=== PATIENT | male | born 1980 | race Caucasian/White ===

== ENCOUNTER 2017-02-16 21:54 | Emergency (ER) | payer OTHER, MEDICAID ==
[~2017-02-16] VITALS: Ht 177.8 cm; Wt 83.9 kg
[~2017-02-16 21:54] MED LIST: AMBIEN5 MG ORAL; ATARAX25 MG ORAL; AUGMENTIN 500-1 EACH ORAL; AUGMENTIN 875-1 EAC1 ORAL; BACITRACIN1 APPLIC TOPIC; BACTRIM DS TAB1 EAC1 ORAL; IBUPROFEN600 MG ORAL; METHADONE HCL10 MG PO; NORCO 10-325 T1 EACH ORAL; PENICILLIN V P500 MG PO; VICODIN ES 7.51 EACH PO; XANAX2 MG ORAL; methadone
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
[2017-02-16] MEDS ORDERED: ALPRAZolam 0.5mg tab ORAL ONE (22:45)
[2017-02-16] MEDS ORDERED: KLONOPIN1 MG ORAL (22:46)
[2017-02-16 22:58] VITALS: BP 115/71
[2017-02-16 22:59] VITALS: BP 115/71
== END 2017-02-16 23:01 | disposition home or self-care (01) ==
LOC: EMR 22:20
DX: F13.239 Sedative, hypnotic or anxiolytic dependence with withdrawal, unspecified (principal); F41.9 Anxiety disorder, unspecified
CPT/HCPCS: 99283

== ENCOUNTER 2017-05-05 07:18 | Emergency (ER) | payer OTHER, MEDICAID ==
[~2017-05-05] VITALS: Ht 177.8 cm; Wt 81.6 kg
[~2017-05-05 07:18] MED LIST changes: +KLONOPIN1 MG ORAL
[2017-05-05 07:29] VITALS: BP 166/100
[2017-05-05] MEDS ORDERED: Morphine Sulfate 4mg/ml Inj IVP ONE (07:45)
[2017-05-05] MEDS ORDERED: Ketorolac 30mg Inj IV ONE (07:45)
--- NOTE | 2017-05-05 08:05 | Emergency Room Report ---
History of Present Illness General Chief Complaint: Male Urogenital Problems Source: Patient Present Illness HPI 37-year-old M presents ED for evaluation. States that he's been having back pain radiating to his groin for the last several weeks. Pain is 10/10 throbbing, radiating from his right flank to his groin. Notes dysuria. Patient believes he may have a kidney stone. Denies any prior history of kidney stones but states there is a family history. Denies any fevers or chills. Denies nausea vomiting. Patient appears very anxious. There is a documented history of anxiety. No other aggravating relieving factors. Denies any other associated symptoms Allergies: Coded Allergies: No Known Allergies (Unverified , 08/25/12) Patient History Past Medical History: psych hx Past Surgical History: none Pertinent Family History: none Social History: Denies: alcohol use, drug use, smoking Immunizations: UTD Reviewed Nursing Documentation: PMH: Agreed, PSxH: Agreed Nursing Documentation-PMH Past Medical History: No Stated History Hx Neurological Problems: Yes - panic attack, substance Review of Systems All Other Systems: negative except mentioned in HPI Physical Exam Vital Signs Date Time Temp Pulse Resp B/P Pulse Ox O2 Delivery O2 Flow Rate FiO2 05/05/17 07:20 97.9 76 16 166/100 100 Room Air Sp02 EP Interpretation: reviewed, normal General Appearance: alert, GCS 15, non-toxic, mild distress Head: normocephalic Eyes: bilateral eye PERRL, bilateral eye normal inspection ENT: normal ENT inspection Neck: normal inspection Respiratory: normal inspection Cardiovascular #1: normal inspection Gastrointestinal: normal bowel sounds, non tender, soft, non-distended, no guarding, no rebound Rectal: deferred Genitourinary: scrotum normal, CVA tenderness (R) Musculoskeletal: back normal Neurologic: alert, oriented x3, responsive, motor strength/tone normal, sensory intact, speech normal Psychiatric: anxious Skin: normal inspection Lymphatic: normal inspection Medical Decision Making Diagnostic Impression: Primary Impression: Kidney stone ER Course Hospital Course 37-year-old M presents to ED with R flank pain Differential diagnosis includes-appendicitis, cholecystitis, kidney stone, pyelonephritis Clinical course Patient placed on stretcher. After initial history and physical I ordered labs , IV fluids, pain medications and CT scan Labs - no leukocytosis, electrolytes ok, LFTs normal, UA - hematuria, no UTI CT scan shows R hydronephrosis/hydroureter. No obstructing stone identified. Likely recently passed Upon reassessment, patient states pain has improved. Given improvement in symptoms, I believe patient can be safely discharged to home. Patient agrees with plan given referrals to PMD, Urology I feel this is a highly complex case requiring extensive working including EKG/ Rhythm strip, Xray/CT/US, Blood/urine lab work, repeat exams while in ED, and administration of strong opiates/narcotics for pain control, admission to hospital or close patient follow up. Diagnosis - kidney stone Stable and discharged to home with Rx Motrin, flomax. Followup with PMD/ urology. Return to ED if symptoms recur or worsen Labs Test 05/05/17 07:45 White Blood Count 7.5 K/UL (4.8-10.8) Red Blood Count 4.48 M/UL (4.70-6.10) Hemoglobin 13.3 G/DL (14.2-18.0) Hematocrit 40.6 % (42.0-52.0) Mean Corpuscular Volume 91 FL (80-99) Mean Corpuscular Hemoglobin 29.7 PG (27.0-31.0) Mean Corpuscular Hemoglobin Concent 32.7 G/DL (32.0-36.0) Red Cell Distribution Width 11.6 % (11.6-14.8) Platelet Count 195 K/UL (150-450) Mean Platelet Volume 7.9 FL (6.5-10.1) Neutrophils (%) (Auto) 70.6 % (45.0-75.0) Lymphocytes (%) (Auto) 23.1 % (20.0-45.0) Monocytes (%) (Auto) 4.6 % (1.0-10.0) Eosinophils (%) (Auto) 0.8 % (0.0-3.0) Basophils (%) (Auto) 0.8 % (0.0-2.0) Urine Color Yellow Urine Appearance Slightly cloudy Urine pH 6.5 (4.5-8.0) Urine Specific [place] 1.020 (1.005-1.035) Urine Protein 2+ (NEGATIVE) Urine Glucose (UA) Negative (NEGATIVE) Urine Ketones 2+ (NEGATIVE) Urine Occult Blood 5+ (NEGATIVE) Urine Nitrite Negative (NEGATIVE) Urine Bilirubin Negative (NEGATIVE) Urine Urobilinogen 1 MG/DL (0.0-1.0) Urine Leukocyte Esterase 1+ (NEGATIVE) Urine RBC 60-80 /HPF (0 - 0) Urine WBC 2-4 /HPF (0 - 0) Urine Squamous Epithelial Cells Occasional /LPF Urine Bacteria Few /HPF (NONE) Sodium Level 137 mEQ/L (135-145) Potassium Level 4.1 mEQ/L (3.4-4.9) Chloride Level 98 mEQ/L (98-107) Carbon Dioxide Level 29 mEQ/L (20-30) Anion Gap 10 (5-15) Blood Urea Nitrogen 13 mg/dL (7-23) Creatinine 1.1 mg/dL (0.7-1.2) Estimat Glomerular Filtration Rate > 60 mL/min (>60) Glucose Level 133 mg/dL (74-106) Calcium Level 9.9 mg/dL (8.6-10.2) Total Bilirubin 0.6 mg/dL (0.0-1.2) Aspartate Amino Transf (AST/SGOT) 37 U/L (5-40) Alanine Aminotransferase (ALT/SGPT) 36 U/L (3-41) Alkaline Phosphatase 80 U/L (40-129) Total Protein 7.5 g/dL (6.6-8.7) Albumin 4.7 g/dL (3.5-5.2) Globulin 2.8 g/dL Albumin/Globulin Ratio 1.6 (1.0-2.7) Lipase 10 U/L (< 60) CT/MRI/US Diagnostic Results CT/MRI/US Diagnostic Results : Imaging Test Ordered: CT A/P Impression R hydronephrosis/hydroureter. no obstructing stone. likely recently passed. Last Vital Signs Date Time Temp Pulse Resp B/P Pulse Ox O2 Delivery O2 Flow Rate FiO2 05/05/17 07:29 97.9 16 166/100 100 Room Air 05/05/17 07:20 76 Status: improved Disposition: HOME, SELF-CARE Condition: Stable Scripts Tamsulosin Hcl (TAMSULOSIN HCL*) 0.4 Mg Cap.er.24h 0.4 MG ORAL BEDTIME, #10 CAP Prov: DARCY WEST M.D. 05/05/17 Ibuprofen* (MOTRIN*) 600 Mg Tablet 600 MG ORAL Q8H Y for For Pain, #30 TAB 0 Refills Prov: DARCY WEST M.D. 05/05/17 Referrals: NOT CHOSEN LEEROY/,REFERRING (PCP) DARCY WEST M.D. May 05, 2017 08:05
[2017-05-05 08:14] LABS: APPEARANCE,URINE SLIGHTLY CLOUDY; KETONES,URINE 2+ (NEGATIVE); LEUKOCYTE ESTERASE ,URINE 1+ (NEGATIVE); NITRITE,URINE NEGATIVE (NEGATIVE); PH,URINE 6.5 (4.5-8.0); PROTEIN,URINE 2+ (NEGATIVE); UROBILINOGEN,URINE 1 MG/DL (0.0-1.0)
[2017-05-05 08:35] LABS: BACTERIA,URINE FEW /HPF; BASOPHILS % (AUTO) 0.8 % (0.0-2.0); EOSINOPHILS % (AUTO) 0.8 % (0.0-3.0); LYMPHOCYTES % (AUTO) 23.1 % (20.0-45.0); MEAN CORPUSCULAR HEMOGLOBIN 29.7 PG (27.0-31.0); MEAN CORPUSCULAR HGB CONC 32.7 G/DL (32.0-36.0); MEAN CORPUSCULAR VOLUME 91 FL (80-99); MEAN PLATELET VOLUME 7.9 FL (6.5-10.1); MONOCYTES % (AUTO) 4.6 % (1.0-10.0); NEUTROPHILS % (AUTO) 70.6 % (45.0-75.0); PLATELET COUNT 195 K/UL (150-450); RBC,URINE 60-80 /HPF (0 - 0); RED BLOOD COUNT 4.48 M/UL (4.70-6.10); RED CELL DISTRIBUTION WIDTH 11.6 % (11.6-14.8); SQUAMOUS EPITHELIAL CELL,UR OCCASIONAL /LPF (NONE/OCC); WHITE BLOOD COUNT 7.5 K/UL (4.8-10.8)
[2017-05-05 08:39] VITALS: BP 134/84
[2017-05-05 08:49] LABS: ALANINE AMINOTRANSFERASE 36 U/L (3-41); ALBUMIN/GLOBULIN RATIO 1.6 (1.0-2.7); ANION GAP 10 (5-15); ASPARTATE AMINO TRANSFERASE 37 U/L (5-40); CALCIUM 9.9 mg/dL (8.6-10.2); CARBON DIOXIDE 29 mEQ/L (20-30); CHLORIDE 98 mEQ/L (98-107); CREATININE 1.1 mg/dL (0.7-1.2); GLOMERULAR FILTRATION RATE > 60 mL/min (>60); HEMOLYSIS 6; LIPASE 10 U/L (< 60); POTASSIUM 4.1 mEQ/L (3.4-4.9); SODIUM 137 mEQ/L (135-145); TOTAL PROTEIN 7.5 g/dL (6.6-8.7)
[2017-05-05 09:51] VITALS: BP 113/84
[2017-05-05] MEDS ORDERED: TAMSULOSIN HCL0.4 MG ORAL (09:53)
[2017-05-05] MEDS ORDERED: IBUPROFEN600 MG ORAL (09:53)
--- NOTE | 2017-05-06 08:31 | Diagnostic Imaging Report ---
Indication: Abdominal pain Technique: Continuous helical transaxial imaging of the abdomen and pelvis was obtained from the lung bases to the pubic symphysis. No intravenous contrast was administered. Coronal 2-D reformats were also obtained. Total Dose length Product (DLP): [address] Dose Index Volume (CTDIvol): 14 mGy Comparison: none Findings: There is right hydronephrosis and hydroureter demonstrated but no obstructing stone is seen. Periureteral and perinephric stranding also demonstrated. No intrarenal stones are also identified. Gallbladder is grossly unremarkable.. There is no free fluid or free air. The bladder is unremarkable. Appendix is normal. No evidence of bowel obstruction. The lung bases are clear. Impression: Right hydronephrosis/hydroureter without an obstructing stone. The stone may have recently passed. Differential consideration includes pyelonephritis/pyelitis. Please correlate clinically. Normal appendix The CT scanner at [facility] is accredited by the [employer] and the scans are performed using dose optimization techniques as appropriate to a performed exam including Automatic Exposure control.
== END 2017-05-05 09:59 | disposition home or self-care (01) ==
LOC: EMR 07:47
DX: N20.0 Calculus of kidney (principal); N13.30 Unspecified hydronephrosis
CPT/HCPCS: 36415; 74176; 80053; 81003; 83690; 85025; 96374; 99284; J1885; J2270

== ENCOUNTER 2017-07-02 19:09 | Emergency (ER) | payer OTHER, MEDICAID ==
[~2017-07-02] VITALS: Ht 177.8 cm; Wt 72.6 kg
[~2017-07-02 19:09] MED LIST changes: +TAMSULOSIN HCL0.4 MG ORAL
[2017-07-02 19:30] VITALS: BP 146/88
[2017-07-02] MEDS ORDERED: IBUPROFEN600 MG ORAL (20:38)
[2017-07-02 21:30] VITALS: BP 138/81
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
== END 2017-07-02 21:30 | disposition home or self-care (01) ==
LOC: EMR 20:32
DX: S09.90XA Unspecified injury of head, initial encounter (principal); X58.XXXA Exposure to other specified factors, initial encounter; Y93.9 Activity, unspecified; Y92.9 Unspecified place or not applicable
CPT/HCPCS: 70450; 99284

== ENCOUNTER 2018-03-24 00:05 | Emergency (ER) | payer OTHER, MEDICAID ==
[~2018-03-24] VITALS: Ht 177.8 cm; Wt 79.4 kg
[2018-03-24 00:23] VITALS: BP 123/79
[2018-03-24] MEDS ORDERED: XANAX2 MG ORAL (00:24)
[2018-03-24 00:25] VITALS: BP 123/79
--- NOTE | 2018-03-24 03:46 | Emergency Room Report ---
History of Present Illness General Chief Complaint: Medication Refill Source: Patient Present Illness HPI 38-year-old male presents ED for medication refill. States he has anxiety and takes Xanax. States that he ran out of his medication and needs a refill for 2 days until he sees his PMD. Denies any suicidal or homicidal ideation. Denies hearing voices. Denies any drug use at this time. No other aggravating relieving factors. Denies any other associated symptoms Allergies: Coded Allergies: No Known Allergies (Unverified , 08/25/12) Patient History Past Medical History: psych hx Past Surgical History: none Pertinent Family History: none Social History: Denies: smoking, alcohol use, drug use Immunizations: UTD Reviewed Nursing Documentation: PMH: Agreed; PSxH: Agreed Nursing Documentation-PMH Past Medical History: No History, Except For History Of Psychiatric Problem: Yes - anxiety Hx Neurological Problems: Yes - panic attack, substance Review of Systems All Other Systems: negative except mentioned in HPI Physical Exam Vital Signs Date Time Temp Pulse Resp B/P (MAP) Pulse Ox O2 Delivery O2 Flow Rate FiO2 03/24/18 00:09 97.9 88 20 129/84 97 Room Air 97.9 Sp02 EP Interpretation: reviewed, normal General Appearance: no apparent distress, alert, GCS 15, non-toxic Head: normocephalic ENT: normal ENT inspection Neck: normal inspection Respiratory: normal inspection Cardiovascular #1: normal inspection Gastrointestinal: normal inspection Rectal: deferred Genitourinary: no CVA tenderness Musculoskeletal: normal inspection Neurologic: alert, oriented x3, responsive, motor strength/tone normal, sensory intact, speech normal Psychiatric: judgement/insight normal, memory normal, no suicidal/homicidal ideation, no delusions, anxious Skin: normal inspection Lymphatic: normal inspection Medical Decision Making Diagnostic Impression: Primary Impression: Encounter for medication refill Additional Impression: Anxiety ER Course 38-year-old male presents to ED refill of her medication. History of anxiety- takes xanax hospital course: After initial history and physical, I reviewed EMR. Patient has been here previously for refill of his Xanax. Patient on [facility] has extensive medication history including suboxone and xanax. However patient has been here for benzo withdrawal. I believe patient will require continued medication. I agreed to provide him with refill for 2 days of his xanax Diagnosis-encounter for medication refill, anxiety Stable and discharged to home with prescription for xanax. Followup with PMD. Return to ED if symptoms recur or worsen Last Vital Signs Date Time Temp Pulse Resp B/P (MAP) Pulse Ox O2 Delivery O2 Flow Rate FiO2 03/24/18 00:25 97.9 79 20 123/79 98 Room Air 97.9 Status: improved Disposition: HOME, SELF-CARE Condition: Stable Scripts Alprazolam* (XANAX*) 2 Mg Tablet 2 MG ORAL TID PRN for PRN ANXIETY/AGITATION, #6 TAB 0 Refills Prov: Fabián Rodriguez MD 03/24/18 Referrals: NON PHYSICIAN (PCP) Patient Instructions: Medicine Refill at the Emergency Department Fabián Rodriguez MD Mar 24, 2018 03:46
== END 2018-03-24 00:25 | disposition home or self-care (01) ==
LOC: EMR 00:24
DX: Z76.0 Encounter for issue of repeat prescription (principal); F41.9 Anxiety disorder, unspecified
CPT/HCPCS: 99283